=== PATIENT | female | born 1990 | race Caucasian/White ===

== ENCOUNTER → 2022-12-08 | Outpatient (CLI) | payer OTHER | LOC: M RAD 11:48 | DX: Z30.431 Encounter for routine checking of intrauterine contraceptive device (principal); D25.9 Leiomyoma of uterus, unspecified ==

== ENCOUNTER 2022-12-29 09:00 | Emergency (ER) | payer OTHER ==
[~2022-12-29] VITALS: Ht 165.1 cm; Wt 62.8 kg
[2022-12-29] MEDS ORDERED: ACET325C5 PO (09:12)
[2022-12-29 10:24] LABS: APPEARANCE, URINE MANUAL TURBID (CLEAR); COLOR, URINE MANUAL RED (YELLOW)
[2022-12-29 10:25] LABS: SPECIFIC GRAVITY,URINE MANUAL 1.025 (1.002-1.035)
[2022-12-29 10:26] LABS: NITRITE, URINE MANUAL POSITIVE (NEGATIVE); PROTEIN, URINE MANUAL 3+ mg/dL (NEGATIVE)
[2022-12-29 10:27] LABS: BLOOD URINE MANUAL POSITIVE (NEGATIVE); GLUCOSE, URINE (UA) MANUAL NEGATIVE (NEGATIVE)
[2022-12-29 10:33] LABS: BASO % 0.7 % (0.0-1.0); EOS # 0.1 10^3/uL (0.0-0.5); EOS % 1.7 % (0.0-3.0); HEMATOCRIT 34.9 % (36.0-47.0); HEMOGLOBIN 11.4 g/dl (12.0-15.5); LYMPH # 2.5 10^3/uL (1.5-5.0); LYMPH % 43.2 % (24.0-44.0); MEAN CORPUSCULAR HEMOGLOBIN 29.2 pg (27.0-33.0); MEAN CORPUSCULAR HGB CONC 32.7 g/dl (32.0-36.5); MEAN CORPUSCULAR VOLUME 89.3 fl (80.0-96.0); MONO # 0.5 10^3/uL (0.0-0.8); MONO % 9.2 % (2.0-8.0); NEUTROPHILS # 2.6 10^3/uL (1.5-8.5); NEUTROPHILS % 44.9 % (36.0-66.0); PLATELET COUNT, AUTOMATED 299 10^3/uL (150-450); RED BLOOD COUNT 3.91 10^6/uL (4.00-5.40); WHITE BLOOD COUNT 5.9 10^3/uL (4.0-10.0)
[2022-12-29 10:40] LABS: BILIRUBIN, URINE MANUAL 2+ (NEGATIVE)
[2022-12-29 10:41] LABS: UROBILINOGEN, URINE MANUAL OBSCURED mg/dl (NORMAL)
[2022-12-29 10:43] LABS: LEUKOCYTE ESTERASE, URINE MAN TRACE (NEGATIVE)
[2022-12-29 10:44] LABS: KETONE, URINE MANUAL OBSCURED mg/dL (NEGATIVE)
[2022-12-29 10:47] LABS: RBC, URINE TNTC /hpf (0-3); SQUAMOUS EPITHELIAL CELL URINE SMALL AMOUNT /hpf (SMALL AMT)
[2022-12-29 10:48] LABS: BACTERIA, URINE SMALL AMOUNT; HYALINE CAST, URINE NONE SEEN /lpf (0-1)
[2022-12-29 10:51] LABS: HCG, SERUM QUALITATIVE NEGATIVE (NEGATIVE)
[2022-12-29] MEDS ORDERED: ISOVUE-370 76% 100ML VIAL As Ordered ONE (11:21)
[2022-12-29] MEDS ORDERED: MACR100C43 PO (12:34)
[2022-12-29 12:47] VITALS: BP 117/71; TEMP 98.4; O2SAT 100
== END 2022-12-29 12:55 | disposition home or self-care (01) ==
LOC: M ED 09:00
DX: D25.9 Leiomyoma of uterus, unspecified (principal); N92.0 Excessive and frequent menstruation with regular cycle; N39.0 Urinary tract infection, site not specified
CPT/HCPCS: 74177; 76830; 76856; 81000; 84703; 85025; 86850; 86900; 86901; 93976; 99284; Q9967

== ENCOUNTER 2023-06-10 11:18 | Emergency (ER) | payer OTHER ==
[~2023-06-10] VITALS: Ht 165.1 cm; Wt 63.6 kg
[~2023-06-10 11:18] MED LIST: ACET325C5 PO; MACR100C43 PO
[2023-06-10 11:19] VITALS: BP 123/77; TEMP 98.1; O2SAT 100
== END 2023-06-10 14:00 | disposition home or self-care (01) ==
LOC: M ED 11:18
DX: M79.604 Pain in right leg (principal); Y92.9 Unspecified place or not applicable; Y93.02 Activity, running; Y99.1 Military activity; Z79.1 Long term (current) use of non-steroidal anti-inflammatories (NSAID)

== ENCOUNTER 2024-01-13 18:38 | Emergency (ER) | payer OTHER ==
[~2024-01-13] VITALS: Ht 165.1 cm; Wt 62.5 kg
[2024-01-13 18:40] VITALS: BP 106/71; TEMP 98.7; O2SAT 99
== END 2024-01-13 18:44 | disposition left against medical advice (07) ==
LOC: M ED 18:38
DX: Z53.21 Procedure and treatment not carried out due to patient leaving prior to being seen by health care provider (principal)

== ENCOUNTER → 2024-01-14 | Outpatient (CLI) | payer OTHER | LOC: M RAD 10:27 | PROVIDERS: ATTEND Physician Assistant | DX: M54.50 Low back pain, unspecified (principal) ==

== ENCOUNTER 2024-07-30 11:02 | Emergency (ER) | payer OTHER ==
[~2024-07-30] VITALS: Ht 165.1 cm; Wt 63.6 kg
[2024-07-30 13:27] VITALS: TEMP 99
[2024-07-30] MEDS ORDERED: PRAZ1CAP (13:30)
[2024-07-30] MEDS ORDERED: RAME8TAB2 (13:30)
[2024-07-30] MEDS ORDERED: JUNE1.5T (13:30)
[2024-07-30] MEDS ORDERED: FLUO-290 (13:30)
[2024-07-30 13:49] LABS: BASO # 0.1 10^3/uL (0.0-0.2); BASO % 0.4 % (0.0-1.0); EOS # 0.1 10^3/uL (0.0-0.5); EOS % 0.4 % (0.0-3.0); HEMATOCRIT 37.9 % (36.0-47.0); HEMOGLOBIN 12.6 g/dl (12.0-15.5); LYMPH # 2.2 10^3/uL (1.5-5.0); LYMPH % 13.3 % (24.0-44.0); MEAN CORPUSCULAR HEMOGLOBIN 29.3 pg (27.0-33.0); MEAN CORPUSCULAR HGB CONC 33.2 g/dl (32.0-36.5); MEAN CORPUSCULAR VOLUME 88.1 fl (80.0-96.0); NEUTROPHILS # 13.3 10^3/uL (1.5-8.5); NEUTROPHILS % 79.4 % (36.0-66.0); PLATELET COUNT, AUTOMATED 302 10^3/uL (150-450); WHITE BLOOD COUNT 16.7 10^3/uL (4.0-10.0)
[2024-07-30 13:54] LABS: INR 0.93; PROTHROMBIN TIME 12.8 SECONDS (12.5-14.5)
[2024-07-30 14:13] LABS: ALBUMIN 3.8 G/DL (3.2-5.2); ALKALINE PHOSPHATASE 53 U/L (35-104); ALT/SGPT 11 U/L (7.0-40); AST/SGOT 11 U/L (<34); BILIRUBIN,DIRECT < 0.1 MG/DL (<0.4); BILIRUBIN,TOTAL 0.3 MG/DL (0.3-1.2); BLOOD UREA NITROGEN 13 MG/DL (9-23); CALCIUM LEVEL 9.1 MG/DL (8.5-10.1); CARBON DIOXIDE LEVEL 23 MMOL/L (20-31); CHLORIDE LEVEL 105 MMOL/L (98-107); CK-MB VALUE MASS < 1.0 NG/ML (<3.6); CREATININE FOR GFR 0.64 MG/DL (0.55-1.30); GLOMERULAR FILTRATION RATE > 60.0 (>60); GLUCOSE, FASTING 96 MG/DL (60-100); POTASSIUM SERUM 3.9 MMOL/L (3.5-5.1); SODIUM LEVEL 137 MMOL/L (136-145); TOTAL PROTEIN 7.8 G/DL (5.7-8.2)
[2024-07-30 14:16] LABS: HCG, SERUM QUALITATIVE NEGATIVE (NEGATIVE)
[2024-07-30 14:19] LABS: CPK CREATINE PHOSPHOKINASE 101 U/L (34-145); MB/CK RELATIVE INDEX 0.99 (< OR =4)
[2024-07-30] MEDS: ASPIRIN 81MG CHEW TABLET PO ONE (14:48)
[2024-07-30] MEDS ORDERED: ISOVUE-370 76% 100ML VIAL As Ordered ONE (15:23)
[2024-07-30 15:27] LABS: CK-MB VALUE MASS < 1.0 NG/ML (<3.6)
[2024-07-30 15:29] LABS: CPK CREATINE PHOSPHOKINASE 109 U/L (34-145); MB/CK RELATIVE INDEX 0.91 (< OR =4)
[2024-07-30] MEDS: KETOROLAC 30 MG/ML 1ML VIAL IV ONE (16:06)
[2024-07-30 16:30] VITALS: BP 112/70; O2SAT 99
== END 2024-07-30 16:49 | disposition home or self-care (01) ==
LOC: M ED 11:02
DX: R55 Syncope and collapse (principal); R06.00 Dyspnea, unspecified; F41.9 Anxiety disorder, unspecified; F32.A Depression, unspecified; Z79.1 Long term (current) use of non-steroidal anti-inflammatories (NSAID); Z79.899 Other long term (current) drug therapy
CPT/HCPCS: 36415; 71045; 71275; 80048; 80076; 82550; 82553; 84484; 84703; 85025; 85610; 93005; 93041; 94760; 96374; 99285; J1885; Q9967